=== PATIENT | male | born 1965 | race Caucasian/White ===

== ENCOUNTER 2018-07-25 15:53 | Emergency (ER) | payer BC, OTHER ==
[2018-07-25 16:46] LABS: Absolute Monocytes 1.1 K/uL (0.1-1.3); Absolute Neutrophil 4.9 K/uL (1.8-8.0); Basophils % 0.8 % (0-1.3); Eosinophils % 3.2 % (0-4.4); Hematocrit 50.7 % (39.6-49.0); Lymphocytes % 24.2 % (15.3-44.8); MPV 9.6 fL (7.6-11.3); Monocytes % 13.1 % (3.3-12.3); RBC Red Blood Cell Count 5.82 M/uL (4.33-5.43)
--- NOTE | 2018-07-25 16:47 | RAD REPORT ---
EXAM DESCRIPTION: CT - Head Brain Wo Cont - 07/25/2018 4:32 pm CLINICAL HISTORY: SYNCOPE Headache, drowsiness, syncope, head injury COMPARISON: HEAD BRAIN W O CONTRAST dated 12/19/2014 TECHNIQUE: All CT scans are performed using dose optimization technique as appropriate and may inclu de automated exposure control or mA/KV adjustment according to patient size. FINDINGS: No intracranial hemorrhage, hydrocephalus or extra-axial fluid collection.No areas of brai n edema or evidence of midline shift. The paranasal sinuses and mastoids are clear. The calvarium is intact. IMPRESSION: No acute intracranial abnormality.
[2018-07-25 16:51] LABS: Protime INR 0.9
[2018-07-25 17:06] LABS: ALT/SGPT 39 U/L (12-78); AST/SGOT 15 U/L (15-37); Albumin 3.9 g/dL (3.4-5.0); Alkaline Phosphatase 63 U/L (45-117); BUN Blood Urea Nitrogen 12 mg/dL (7-18); Bicarbonate 28 mmol/L (21-32); Bilirubin Direct < 0.1 mg/dL (0-0.2); Bilirubin Total 0.2 mg/dL (0.2-1.0); Glucose Level 107 mg/dL (74-106); Lipase 127 U/L (73-393); NT PRO-BNP 10 pg/mL (<125); Potassium 3.7 mmol/L (3.5-5.1); Protein, Total 7.4 g/dL (6.4-8.2); Sodium Level 140 mmol/L (136-145); Troponin (Emerg Dept Use Only) < 0.02 ng/mL (0.0-0.045)
--- NOTE | 2018-07-25 17:09 | ECHO ---
HEIGHT: 5 ft 11 in WEIGHT: 279 lb oz DATE OF STUDY: 07/25/[address]: Panda Bolton MD 2-DIMENSIONAL: YES M.MODE: YES DOPPLER: YES COLOR FLOW: YES TDS: NO PORTABLE: YES DEFINITY: NO BUBBLE STUDY: NO DIAGNOSIS: SYNCOPE CARDIAC HISTORY: CATHERIZATION: NO SURGERY: NO PROSTHETIC VALVE: NO PACEMAKER: NO MEASUREMENTS (cm) DIASTOLIC (NORMALS) SYSTOLIC (NORMALS) IVSd 1.1 (0.6-1.2) LA Diam 3.2 (1.9-4.0) LVEF 82% LVIDd 5.2 (3.5-5.7) LVIDs 2.5 (2.0-3.5) %FS 51% LVPWd 1.1 (0.6-1.2) Ao Diam 2.9 (2.0-3.7) 2 DIMENSIONAL ASSESSMENT: RIGHT ATRIUM: NORMAL LEFT ATRIUM: NORMAL RIGHT VENTRICLE: NORMAL LEFT VENTRICLE: NORMAL TRICUSPID VALVE: NORMAL MITRAL VALVE: NORMAL PULMONIC VALVE: NORMAL AORTIC VALVE: NORMAL PERICARDIAL EFFUSION: NONE AORTIC ROOT: NORMAL LEFT VENTRICULAR WALL MOTION: NORMAL DOPPLER/COLOR FLOW: NORMAL COMMENTS: 2D ECHOCARDIOGRAM WITH DOPPLER. TECHNOLOGIST: Berna MAHONEY
[2018-07-25 17:13] LABS: Urine Blood NEGATIVE (NEG); Urine Glucose NEGATIVE (NEG); Urine Protein 1+ (NEG); Urine pH 7.5 (5.0-7.0)
--- NOTE | 2018-07-25 17:23 | RAD REPORT ---
EXAM DESCRIPTION: RAD - Chest Single View - 07/25/2018 4:38 pm CLINICAL HISTORY: COUGH Chest pain. COMPARISON: No comparisons FINDINGS: Portable technique limits examination quality. The lungs are underinflated but grossly clear. The heart is normal in size. No displaced fractures. IMPRESSION: No acute intrathoracic process suspected.
[2018-07-25] MEDS ORDERED: NA CHLORIDE 0.9% 1,000 ML ONE (17:49)
--- NOTE | 2018-07-25 17:57 | EDPHYS ---
Physician Documentation [facility] Name: Vicente Domínguez III Age: 53 yrs Sex: Male : 1965 Arrival Date: 07/25/2018 Time: 16:03 Bed 20 Private MD: ED Physician Jeffery Brock HPI: 07/25 17:37 This 53 yrs old Male presents to ER via EMS with complaints of Syncope. gs 17:37 Onset: The symptoms/episode began/occurred acutely, just prior to arrival. Duration: gs This was a single episode, that lasted 1 minute(s). Context: the episode(s) was witnessed, by co-worker(s). Associated injury: The patient did not suffer any apparent associated injury. Associated signs and symptoms: Pertinent negatives: agitation, chest pain, combativeness, headache. Current symptoms: Currently, the patient is not experiencing any symptoms, the patient feels back to baseline. The patient has experienced a previous episode. Historical: - Allergies: 16:13 PENICILLINS; jl7 - Home Meds: 16:13 Lipitor Oral [Active]; jl7 - PMHx: 16:13 Hyperlipidemia; jl7 - Immunization history:: Adult Immunizations up to date. - Social history:: Smoking status: Patient/guardian denies using tobacco. - Ebola Screening: : No symptoms or risks identified at this time. ROS: 17:37 All other systems are negative. gs 17:37 Neuro: Negative for seizure activity. gs Exam: 17:37 Head/Face: Normocephalic, atraumatic. Eyes: Pupils equal round and reactive to light, gs extra-ocular motions intact. Lids and lashes normal. Conjunctiva and sclera are non-icteric and not injected. Cornea within normal limits. Periorbital areas with no swelling, redness, or edema. ENT: Nares patent. No nasal discharge, no septal abnormalities noted. Tympanic membranes are normal and external auditory canals are clear. Oropharynx with no redness, swelling, or masses, exudates, or evidence of obstruction, uvula midline. Mucous membranes moist. Neck: Trachea midline, no thyromegaly or masses palpated, and no cervical lymphadenopathy. Supple, full range of motion without nuchal rigidity, or vertebral point tenderness. No Meningismus. Chest/axilla: Normal chest wall appearance and motion. Nontender with no deformity. No lesions are appreciated. Cardiovascular: Regular rate and rhythm with a normal S1 and S2. No gallops, murmurs, or rubs. Normal PMI, no JVD. No pulse deficits. Respiratory: Lungs have equal breath sounds bilaterally, clear to auscultation and percussion. No rales, rhonchi or wheezes noted. No increased work of breathing, no retractions or nasal flaring. Abdomen/GI: Soft, non-tender, with normal bowel sounds. No distension or tympany. No guarding or rebound. No evidence of tenderness throughout. Back: No spinal tenderness. No costovertebral tenderness. Full range of motion. Skin: Warm, dry with normal turgor. Normal color with no rashes, no lesions, and no evidence of cellulitis. MS/ Extremity: Pulses equal, no cyanosis. Neurovascular intact. Full, normal range of motion. Neuro: Awake and alert, GCS 15, oriented to person, place, time, and situation. Cranial nerves II-XII grossly intact. Motor strength 5/5 in all extremities. Sensory grossly intact. Cerebellar exam normal. Normal gait. 17:37 ECG was reviewed by the Attending Physician. Vital Signs: 16:13 BP 141 / 67; Pulse 71; Resp 16 S; Pulse Ox 96% on R/A; Weight 129.27 kg (R); Height 6 jl7 ft. 0 in. (182.88 cm) (R); Pain 0/10; 17:41 BP 133 / 72; Pulse 72; Resp 16 S; Pulse Ox 100% on R/A; jl7 17:56 BP 142 / 74; Pulse 72; Resp 16 S; Pulse Ox 97% on R/A; jl7 19:08 BP 129 / 74; Pulse 70; Resp 16 S; Pulse Ox 100% on R/A; jl7 16:13 Body Mass Index 38.65 (129.27 kg, 182.88 cm) jl7 MDM: 16:20 Patient medically screened. gs 17:37 Differential Diagnosis: cardiac arrhythmia, cerebrovascular accident, emotional gs response, idiopathic syncope, seizure, vasovagal episode. Data reviewed: vital signs, nurses notes, lab test result(s), EKG, radiologic studies. Counseling: I had a detailed discussion with the patient and/or guardian regarding: the historical points, exam findings, and any diagnostic results supporting the discharge/admit diagnosis, lab results, radiology results, the need for outpatient follow up, a claim investigator, a neurologist. Response to treatment: the patient's symptoms have resolved after treatment, the patient's condition has returned to base line, and as a result, I will discharge patient. 17:57 Counseling: I had a detailed discussion with the patient and/or guardian regarding: the gs presence of at least one elevated blood pressure reading (>120/80) during this emergency department visit. Special discussion: I have referred the patient to see his PCP for further evaluation of high blood pressure. 18:55 ED course: pt dc pt had event horizontal nystagmus, loc, head twitch last 30 sec post gs ictal, discussed with daniella dietz.. 07/25 16:16 Order name: Basic Metabolic Panel; Complete Time: 17:15 michael 07/25 16:16 Order name: CBC with Diff; Complete Time: 17:15 michael 07/25 16:16 Order name: LFT's; Complete Time: 17:15 michael 07/25 16:16 Order name: Magnesium; Complete Time: 17:15 michael 07/25 16:16 Order name: NT PRO-BNP; Complete Time: 17:15 michael 07/25 16:16 Order name: PT-INR; Complete Time: 17:15 michael 07/25 16:16 Order name: Troponin (emerg Dept Use Only); Complete Time: 17:15 michael 07/25 16:16 Order name: XRAY Chest (1 view); Complete Time: 17:33 michael 07/25 16:16 Order name: CT Head Brain wo Cont; Complete Time: 17:15 michael 07/25 16:16 Order name: Echo w/ Doppler michael 07/25 16:16 Order name: Urine Culture [facility] 07/25 16:16 Order name: Lipase; Complete Time: 17:15 michael 07/25 16:16 Order name: D-Dimer; Complete Time: 17:15 michael 07/25 16:40 Order name: Urine Dipstick--Ancillary (enter results); Complete Time: 17:15 bd 07/25 16:16 Order name: EKG; Complete Time: 16:17 michael 07/25 16:16 Order name: Cardiac monitoring; Complete Time: 17:40 michael 07/25 16:16 Order name: EKG - Nurse/Tech; Complete Time: 17:40 [facility] 07/25 16:16 Order name: IV Saline Lock; Complete Time: 17:40 [facility] 07/25 16:16 Order name: Labs collected and sent; Complete Time: 17:40 [facility] 07/25 16:16 Order name: O2 Per Protocol; Complete Time: 17:40 [facility] 07/25 16:16 Order name: O2 Sat Monitoring; Complete Time: 17:40 [facility] 07/25 16:16 Order name: Urine Dipstick-Ancillary (obtain specimen); Complete Time: 17:40 [facility] EC:37 Rate is 70 beats/min. Rhythm is regular. PA interval is normal. QRS interval is normal. gs QT interval is normal. T waves are Normal. No ST changes noted. Clinical impression: Normal ECG. Interpreted by me. Administered Medications: 17:40 Drug: NS 0.9% 1000 ml Route: IV; Rate: 1 bolus; Site: right antecubital; jl7 19:01 Follow up: IV Status: Completed infusion jl7 18:30 Drug: Keppra 20 mg/kg Route: IV; Rate: calculated rate; Site: right antecubital; jl7 18:45 Follow up: Response: No adverse reaction; IV Status: Completed infusion jl7 Point of Care Testing: Blood Glucose: 16:15 Blood Glucose: 110 mg/dL; jl7 Ranges: Critical Glucose Levels:Adult <50 mg/dl or >400 mg/dl <40 mg/dl or >180 mg/dl Disposition: 07/25/18 18:59 Discharged to Home. Impression: Epilepsy and recurrent seizures, Syncope and collapse. - Condition is Stable. - Discharge Instructions: Seizure, Adult. - Prescriptions for Keppra 500 mg Oral Tablet - take 1 tablet by ORAL route every 12 hours; 30 tablet. - Medication Reconciliation Form, Thank You Letter, Antibiotic Education, Prescription Opioid Use form. - Follow up: Sukhdev Valadez MD; When: 2 - 3 days; Reason: Re-evaluation by your physician. Signatures: Dispatcher [employer] Panda Tidwell MD MD cha Leal, Jahala, RN RN jl7 Jeffery Brock MD MD gs Corrections: (The following items were deleted from the chart) 18:16 17:57 07/25/2018 17:57 Discharged to Home. Impression: Syncope and collapse. Condition gs is Stable. Forms are Medication Reconciliation Form, Thank You Letter, Antibiotic Education, Prescription Opioid Use. Follow up: Private Physician; When: 2 - 3 days; Reason: Re-evaluation by your physician. Follow up: Jim Cruz; When: 2 - 3 days; Reason: Re-evaluation by your physician. Follow up: Sukhdev Valadez; When: 2 - 3 days; Reason: Re-evaluation by your physician. Problem is new. Symptoms are resolved. 19:11 18:59 07/25/2018 18:59 Discharged to Home. Impression: Epilepsy and recurrent seizures; jl7 Syncope and collapse. Condition is Stable. Forms are Medication Reconciliation Form, Thank You Letter, Antibiotic Education, Prescription Opioid Use. Follow up: Sukhdev Valadez; When: 2 - 3 days; Reason: Re-evaluation by your physician. gs
--- NOTE | 2018-07-25 17:57 | ER ---
Nurse's Notes [facility] Name: Vicente Domínguez III Age: 53 yrs Sex: Male : 1965 Arrival Date: 07/25/2018 Time: 16:03 Bed 20 Private MD: Diagnosis: Epilepsy and recurrent seizures;Syncope and collapse Presentation: 07/25 16:09 Presenting complaint: EMS states: He was at a meeting, sitting down and had a syncopal jl7 episode, did not hit his head. when he woke up he was extremely diaphoretic and pale. Pt denies pain, SOB, N/V/D. reports the doctor took him off of seizure medication 3 months ago that he was put on due to a possible seizure he had a couple years ago. Transition of care: patient was not received from another setting of care. Onset of symptoms was July 25, 2018. Risk Assessment: Do you want to hurt yourself or someone else? Patient reports no desire to harm self or others. Initial Sepsis Screen: Does the patient meet any 2 criteria? No. Patient's initial sepsis screen is negative. Does the patient have a suspected source of infection? No. Patient's initial sepsis screen is negative. Care prior to arrival: IV initiated. 20 GA, in the right antecubital area. 16:09 Method Of Arrival: EMS: [facility] jl7 16:09 Acuity: JESUS MANUEL 3 jl7 Triage Assessment: 16:13 General: Appears in no apparent distress. uncomfortable, Behavior is calm, cooperative, jl7 appropriate for age. Pain: Denies pain. EENT: No signs and/or symptoms were reported regarding the EENT system. Neuro: Level of Consciousness is awake, alert, obeys commands, Oriented to person, place, time, situation, Speech is normal, Facial symmetry appears normal, Pupils are PERRLA, Reports denies dizziness, weakness, [place], blurred vision. Cardiovascular: Heart tones S1 S2 present Patient's skin is warm and dry. Respiratory: Airway is patent Respiratory effort is even, unlabored, Respiratory pattern is regular, symmetrical, Breath sounds are clear bilaterally. GI: No signs and/or symptoms were reported involving the gastrointestinal system. : No signs and/or symptoms were reported regarding the genitourinary system. Derm: Skin is pink, warm \T\ dry. Musculoskeletal: No signs and/or symptoms reported regarding the musculoskeletal system. Historical: - Allergies: 16:13 PENICILLINS; jl7 - Home Meds: 16:13 Lipitor Oral [Active]; jl7 - PMHx: 16:13 Hyperlipidemia; jl7 - Immunization history:: Adult Immunizations up to date. - Social history:: Smoking status: Patient/guardian denies using tobacco. - Ebola Screening: : No symptoms or risks identified at this time. Screenin:16 Abuse screen: Denies threats or abuse. Denies injuries from another. Nutritional jl7 screening: No deficits noted. Tuberculosis screening: No symptoms or risk factors identified. Fall Risk IV access (20 points). Total Riddle Fall Scale indicates No Risk (0-24 pts). Assessment: 16:16 General: See triage assessment. jl7 17:41 Reassessment: Patient appears in no apparent distress at this time. No changes from jl7 previously documented assessment. Patient and/or family updated on plan of care and expected duration. Pain level reassessed. Patient is alert, oriented x 3, equal unlabored respirations, skin warm/dry/pink. 18:05 Reassessment: Dr. Brock at bedside discussing plan of care. jl7 Vital Signs: 16:13 BP 141 / 67; Pulse 71; Resp 16 S; Pulse Ox 96% on R/A; Weight 129.27 kg (R); Height 6 jl7 ft. 0 in. (182.88 cm) (R); Pain 0/10; 17:41 BP 133 / 72; Pulse 72; Resp 16 S; Pulse Ox 100% on R/A; jl7 17:56 BP 142 / 74; Pulse 72; Resp 16 S; Pulse Ox 97% on R/A; jl7 19:08 BP 129 / 74; Pulse 70; Resp 16 S; Pulse Ox 100% on R/A; jl7 16:13 Body Mass Index 38.65 (129.27 kg, 182.88 cm) jl7 ED Course: 16:03 Patient arrived in ED. em1 16:09 Ysabel Colon, IVIS is Primary Nurse. jl7 16:12 Triage completed. jl7 16:13 Arm band placed on right wrist. jl7 16:14 Jeffery Brock MD is Attending Physician. gs 16:16 Patient has correct armband on for positive identification. Placed in gown. Bed in low jl7 position. Call light in reach. Side rails up X2. traffic monitor specialist on. Pulse ox on. NIBP on. Warm blanket given. 16:16 Maintain EMS IV. Dressing intact. Good blood return noted. Site clean \T\ dry. Gauge \T\ jl 7 site: 20 right AC. 16:23 EKG done, by sample prep technician. reviewed by Panda Bolton MD. [facility] 16:30 CT completed. Patient tolerated procedure well. Patient moved to CT via wheelchair. ca Patient moved back from CT. 16:32 CT Head Brain wo Cont In Process Unspecified. EDMS 16:39 XRAY Chest (1 view) In Process Unspecified. EDMS 17:56 Jim Cruz MD is Referral Physician. gs 17:56 Sukhdev Valadez MD is Referral Physician. 18:57 Sukhdev Valadez MD is Referral Physician. 19:08 No provider procedures requiring assistance completed. IV discontinued, intact, jl7 bleeding controlled, No redness/swelling at site. Pressure dressing applied. Administered Medications: 17:40 Drug: NS 0.9% 1000 ml Route: IV; Rate: 1 bolus; Site: right antecubital; jl7 19:01 Follow up: IV Status: Completed infusion jl7 18:30 Drug: Keppra 20 mg/kg Route: IV; Rate: calculated rate; Site: right antecubital; jl7 18:45 Follow up: Response: No adverse reaction; IV Status: Completed infusion jl7 Point of Care Testing: Blood Glucose: 16:15 Blood Glucose: 110 mg/dL; jl7 Ranges: Outcome: 17:57 Discharge ordered by . 18:59 Discharge ordered by . 19:08 Discharged to home ambulatory. jl7 19:08 Condition: stable 19:08 Discharge instructions given to patient, family, Instructed on discharge instructions, follow up and referral plans. medication usage, Demonstrated understanding of instructions, follow-up care, medications, Prescriptions given X 1. 19:11 Patient left the ED. jl7 Signatures: Dispatcher [employer] EDMS Elton Hines em1 Mao Haro Jahala, RN RN jl7 Jeffery Brock MD MD Farhana Olson 3
[2018-07-25] MEDS ORDERED: LEVETIRACETAM IV ONE (18:30)
[2018-07-25] MEDS ORDERED: NA CHLORIDE 0.9% IV ONE (18:30)
[2018-07-26 08:02] VITALS: BP 129/74; O2SAT 100
== END 2018-07-25 19:11 | disposition home or self-care (01) ==
LOC: ER 15:53
DX: G40.802 Other epilepsy, not intractable, without status epilepticus (principal); E78.5 Hyperlipidemia, unspecified; Z88.0 Allergy status to penicillin
CPT/HCPCS: 36415; 70450; 71045; 80048; 80076; 81003; 83690; 83735; 83880; 84484; 85025; 85379; 85610; 87086; 87088; 93005; 93306; 96361; 96374; 99285; J1953; J7030

== ENCOUNTER 2021-07-24 01:09 | Observation (INO) | payer BC ==
[2021-07-24] MEDS ORDERED: ASPIRIN 81 MG CHEWABLE TABLET ONE (01:58)
[2021-07-24 02:13] LABS: Absolute Lymphocytes (CBC) 1.8 K/uL (0.7-4.9); Hematocrit 49.7 % (39.6-49.0); Lymphocytes % 24.9 % (15.3-44.8); MPV 9.4 fL (7.6-11.3); RBC Red Blood Cell Count 5.75 M/uL (4.33-5.43)
[2021-07-24 02:35] LABS: Potassium 3.8 mmol/L (3.5-5.1)
--- NOTE | 2021-07-24 04:17 | ER ---
Nurse's Notes [facility] Name: Vicente Domínguez III Age: 56 yrs Sex: Male : 1965 Arrival Date: 07/24/2021 Time: 01:11 Bed 25 Private MD: Diagnosis: Chest pain, unspecified Presentation: 07/24 01:14 Chief complaint: Patient states: "It started in my back, then it came around to the tw5 front and now it starting to go down my left arm.". Chief complaint: Spouse and/or significant other states: "He was moving heavy items and he hurt is back, but his chest and arm he has been bothering him. He has been grumpy and complaining about for a couple of days.". Coronavirus screen: Vaccine status: Patient reports being unvaccinated. Ebola Screen: Patient negative for fever greater than or equal to 101.5 degrees Fahrenheit, and additional compatible Ebola Virus Disease symptoms Patient denies exposure to infectious person. Patient denies travel to an Ebola-affected area in the 21 days before illness onset. Initial Sepsis Screen: Does the patient meet any 2 criteria? No. Patient's initial sepsis screen is negative. Does the patient have a suspected source of infection? No. Patient's initial sepsis screen is negative. Risk Assessment: Do you want to hurt yourself or someone else? Patient reports no desire to harm self or others. Onset of symptoms was July 22, 2021. 01:14 Method Of Arrival: Ambulatory tw5 01:14 Acuity: JESUS MANUEL 2 tw5 Triage Assessment: 01:18 General: Appears in no apparent distress. Behavior is cooperative, appropriate for age, tw5 anxious. Pain: Complains of pain in anterior aspect of left upper chest Pain radiates to left axilla Pain currently is 3 out of 10 on a pain scale. Cardiovascular: Patient's skin is warm and dry. Historical: - Allergies: :18 PENICILLINS; tw5 - Home Meds: 01:18 Keppra 250 mg Oral tab 2 tabs 2 times per day [Active]; atorvastatin 40 mg oral tab 1 tw5 tab once daily [Active]; - PMHx: 01:18 Hyperlipidemia; Seizure; tw5 - PSHx: 01:18 Cholecystectomy; knee surgery- left knee; tw5 - Immunization history:: Flu vaccine is up to date. - Social history:: Smoking status: Patient denies any tobacco usage or history of. - Family history:: not pertinent. Screenin:15 Abuse screen: Denies threats or abuse. Nutritional screening: No deficits noted. ag7 Tuberculosis screening: No symptoms or risk factors identified. Fall Risk No fall in past 12 months (0 pts). No secondary diagnosis (0 pts). IV access (20 points). Ambulatory Aid- None/Bed Rest/Nurse Assist (0 pts). Gait- Normal/Bed Rest/Wheelchair (0 pts) Mental Status- Oriented to own ability (0 pts). Total Riddle Fall Scale indicates No Risk (0-24 pts). Assessment: 01:28 Cardiovascular: Rhythm is sinus rhythm. tw5 02:09 General: Appears in no apparent distress. comfortable, obese, well groomed, Behavior is ag7 calm, cooperative, appropriate for age, Reports chest pain. Pain: Complains of pain in left trapezius and left scapular area Pain currently is 4 out of 10 on a pain scale. Quality of pain is described as aching, dull, Pain began suddenly, Is intermittent. Neuro: Level of Consciousness is awake, alert, obeys commands, Oriented to person, place, situation, Appropriate for age Incident Response Analyst are equal bilaterally Moves all extremities. Cardiovascular: Heart tones S1 S2 present muffled Capillary refill < 3 seconds is brisk in bilateral fingers toes Clubbing of nail beds is absent JVD is absent Patient's skin is warm and dry. Pulses are 2+ in right radial artery, right dorsalis pedis artery, left radial artery, left dorsalis pedis artery, left carotid pulse and right carotid pulse Edema trace bilateral lower extremity. Respiratory: Airway is patent Trachea midline Respiratory effort is even, unlabored, Respiratory pattern is regular, symmetrical, Breath sounds are clear bilaterally. 03:09 Reassessment: No changes from previously documented assessment. Patient and/or family ag7 updated on plan of care and expected duration. Pain level reassessed. Patient is alert, oriented x 3, equal unlabored respirations, skin warm/dry/pink. 04:00 Reassessment: No changes from previously documented assessment. Patient and/or family ag7 updated on plan of care and expected duration. Pain level reassessed. Patient is alert, oriented x 3, equal unlabored respirations, skin warm/dry/pink. 04:59 General: pt refused medications, spoke to family about plan of care. as6 05:00 Reassessment: No changes from previously documented assessment. Patient and/or family ag7 updated on plan of care and expected duration. Pain level reassessed. Patient is alert, oriented x 3, equal unlabored respirations, skin warm/dry/pink. Patient denies pain at this time. 05:57 Reassessment: No changes from previously documented assessment. Patient and/or family ag7 updated on plan of care and expected duration. Pain level reassessed. Patient is alert, oriented x 3, equal unlabored respirations, skin warm/dry/pink. patient is off the floor for CTA. 06:15 Reassessment: Patient and/or family updated on plan of care and expected duration. Pain ag7 level reassessed. Patient is alert, oriented x 3, equal unlabored respirations, skin warm/dry/pink. Patient return from CT. Vital Signs: 01:14 BP 122 / 73; Pulse 70; Resp 18; Temp 97.7(O); Pulse Ox 96% on R/A; Weight 120.2 kg; tw5 Height 5 ft. 11 in. (180.34 cm); Pain 3/10; 02:00 BP 131 / 81; Pulse 70; Resp 18 S; Pulse Ox 97% on R/A; Pain 4/10; ag7 02:30 BP 107 / 66; Pulse 62; Resp 16 S; Pulse Ox 93% on R/A; Pain 4/10; ag7 03:00 BP 140 / 77; Pulse 61; Resp 16 S; Pulse Ox 95% on R/A; Pain 4/10; ag7 03:15 BP 127 / 74; Pulse 65; Resp 16; Pulse Ox 91% on R/A; Pain 4/10; ag7 04:15 BP 119 / 72; Pulse 62; Resp 16 S; Pulse Ox 94% on R/A; Pain 0/10; ag7 05:15 BP 120 / 64 LA Supine (auto/reg); Pulse 63 MON; Resp 16 S; Pulse Ox 95% on R/A; Pain ag7 0/10; 05:45 BP 130 / 67; Pulse 60; Resp 16 S; Pulse Ox 93% on R/A; Pain 0/10; ag7 01:14 Body Mass Index 36.96 (120.20 kg, 180.34 cm) tw5 ED Course: 01:11 Patient arrived in ED. kc5 01:18 Triage completed. tw5 01:18 Arm band placed on right wrist. tw5 01:28 EKG completed in triage. Results shown to MD. tw5 01:34 Panda Bolton MD is Attending Physician. michael 01:47 Rachele Puckett, IVIS is Primary Nurse. ag7 01:48 Inserted saline lock: 20 gauge in right antecubital area, using aseptic technique. ag7 Blood collected. 02:16 Patient has correct armband on for positive identification. Bed in low position. Call ag7 light in reach. Side rails up X 1. air sampling and monitoring on. Pulse ox on. 02:16 Patient maintains SpO2 saturation greater than 95% on room air. ag7 04:16 Peyton Cedeño MD is Hospitalizing Provider. michael 06:00 No provider procedures requiring assistance completed. ag7 06:21 CT Aorta for Dissection In Process Unspecified. EDMS Administered Medications: 02:00 Drug: Aspirin Chewable Tablet 324 mg Route: PO; ag7 03:00 Follow up: Response: No adverse reaction ag7 05:00 Not Given (Patient Refused): morphine 2 mg IVP once; RASS on ADMIN: Combtv4, Very ag7 Agttd3, Agttd2, Rstlss1, AlertClm0, Drwsy-1, Lt Sdtn-2, Mod Sdtn-3, Dp Sdtn-4, UnArsble-5 05:00 Not Given (Patient Refused): Zofran (Ondansetron) 4 mg IVP once; over 2 minutes ag7 05:01 Not Given (Patient Refused): Lovenox (enoxaparin) 100 mg Sub-Q once ag7 05:01 Not Given (Patient Refused): Pepcid (famotidine) 20 mg IVP once; dilute with 10 mL 0.9% ag7 NaCl; give over 2 minutes Outcome: 04:16 Decision to Hospitalize by Provider. michael 12:18 Patient left the ED. iw Signatures: Dispatcher [employer] EDMS Panda Bolton MD MD cha Williams, Irene, RN RN iw Nelly Shine tw5 Donn Garcia RN RN as6 Elyssa Carreno kc5 Italo, Rachele, RN RN ag7 Corrections: (The following items were deleted from the chart) 03:35 01:48 Inserted saline lock: 20 gauge in right antecubital area, using aseptic ag7 technique. ag7
--- NOTE | 2021-07-24 04:18 | EDPHYS ---
Physician Documentation [facility] Name: Vicente Domínguez III Age: 56 yrs Sex: Male : 1965 Arrival Date: 07/24/2021 Time: 01:11 Bed 25 Private MD: ED Physician Panda Bolton HPI: 07/24 04:11 This 56 yrs old Male presents to ER via Ambulatory with complaints of Chest michael Pain. 04:11 The patient or guardian reports chest pain that is located primarily in the anterior michael chest wall, left. Onset: 2 day(s) ago. The pain does not radiate. Associated signs and symptoms: The patient has no apparent associated signs or symptoms. The chest pain is described as a pressure. Modifying factors: The symptoms are alleviated by nothing. the symptoms are aggravated by movement. Severity of pain: At its worst the pain was mild in the emergency department the pain is unchanged. The patient has not experienced similar symptoms in the past. Historical: - Allergies: 01:18 PENICILLINS; tw5 - Home Meds: 01:18 Keppra 250 mg Oral tab 2 tabs 2 times per day [Active]; atorvastatin 40 mg oral tab 1 tw5 tab once daily [Active]; - PMHx: 01:18 Hyperlipidemia; Seizure; tw5 - PSHx: 01:18 Cholecystectomy; knee surgery- left knee; tw5 - Immunization history:: Flu vaccine is up to date. - Social history:: Smoking status: Patient denies any tobacco usage or history of. - Family history:: not pertinent. ROS: 04:11 Constitutional: Negative for fever, chills, and weight loss, Eyes: Negative for injury, michael pain, redness, and discharge, ENT: Negative for injury, pain, and discharge, Neck: Negative for injury, pain, and swelling, Respiratory: Negative for shortness of breath, cough, wheezing, and pleuritic chest pain, Abdomen/GI: Negative for abdominal pain, nausea, vomiting, diarrhea, and constipation, Back: Negative for injury and pain, : Negative for injury, bleeding, discharge, and swelling, MS/Extremity: Negative for injury and deformity, Skin: Negative for injury, rash, and discoloration, Neuro: Negative for headache, weakness, numbness, tingling, and seizure, Psych: Negative for depression, anxiety, suicide ideation, homicidal ideation, and hallucinations, Allergy/Immunology: Negative for hives, rash, and allergies, Endocrine: Negative for neck swelling, polydipsia, polyuria, polyphagia, and marked weight changes, Hematologic/Lymphatic: Negative for swollen nodes, abnormal bleeding, and unusual bruising. 04:11 Cardiovascular: Positive for chest pain, with movement, of the left supraclavicular area, left clavicle, anterior aspect of left upper chest, right lateral anterior chest and right lateral posterior chest. Exam: 04:11 Constitutional: This is a well developed, well nourished patient who is awake, alert, michael and in no acute distress. Head/Face: Normocephalic, atraumatic. Eyes: Pupils equal round and reactive to light, extra-ocular motions intact. Lids and lashes normal. Conjunctiva and sclera are non-icteric and not injected. Cornea within normal limits. Periorbital areas with no swelling, redness, or edema. ENT: Nares patent. No nasal discharge, no septal abnormalities noted. Tympanic membranes are normal and external auditory canals are clear. Oropharynx with no redness, swelling, or masses, exudates, or evidence of obstruction, uvula midline. Mucous membranes moist. Neck: Trachea midline, no thyromegaly or masses palpated, and no cervical lymphadenopathy. Supple, full range of motion without nuchal rigidity, or vertebral point tenderness. No Meningismus. Cardiovascular: Regular rate and rhythm with a normal S1 and S2. No gallops, murmurs, or rubs. Normal PMI, no JVD. No pulse deficits. Respiratory: Lungs have equal breath sounds bilaterally, clear to auscultation and percussion. No rales, rhonchi or wheezes noted. No increased work of breathing, no retractions or nasal flaring. Abdomen/GI: Soft, non-tender, with normal bowel sounds. No distension or tympany. No guarding or rebound. No evidence of tenderness throughout. Back: No spinal tenderness. No costovertebral tenderness. Full range of motion. Male : Normal genitalia with no discharge or lesions. Skin: Warm, dry with normal turgor. Normal color with no rashes, no lesions, and no evidence of cellulitis. MS/ Extremity: Pulses equal, no cyanosis. Neurovascular intact. Full, normal range of motion. Neuro: Awake and alert, GCS 15, oriented to person, place, time, and situation. Cranial nerves II-XII grossly intact. Motor strength 5/5 in all extremities. Sensory grossly intact. Cerebellar exam normal. Normal gait. Psych: Awake, alert, with orientation to person, place and time. Behavior, mood, and affect are within normal limits. 04:11 Chest/axilla: Inspection: Vital Signs: 01:14 BP 122 / 73; Pulse 70; Resp 18; Temp 97.7(O); Pulse Ox 96% on R/A; Weight 120.2 kg; tw5 Height 5 ft. 11 in. (180.34 cm); Pain 3/10; 02:00 BP 131 / 81; Pulse 70; Resp 18 S; Pulse Ox 97% on R/A; Pain 4/10; ag7 02:30 BP 107 / 66; Pulse 62; Resp 16 S; Pulse Ox 93% on R/A; Pain 4/10; ag7 03:00 BP 140 / 77; Pulse 61; Resp 16 S; Pulse Ox 95% on R/A; Pain 4/10; ag7 03:15 BP 127 / 74; Pulse 65; Resp 16; Pulse Ox 91% on R/A; Pain 4/10; ag7 04:15 BP 119 / 72; Pulse 62; Resp 16 S; Pulse Ox 94% on R/A; Pain 0/10; ag7 05:15 BP 120 / 64 LA Supine (auto/reg); Pulse 63 MON; Resp 16 S; Pulse Ox 95% on R/A; Pain ag7 0/10; 05:45 BP 130 / 67; Pulse 60; Resp 16 S; Pulse Ox 93% on R/A; Pain 0/10; ag7 01:14 Body Mass Index 36.96 (120.20 kg, 180.34 cm) tw5 MDM: 01:39 Patient medically screened. michael 04:14 Differential diagnosis: abnormal EKG, acute pericarditis, anxiety, chest wall pain, michael hiatal hernia, stable angina, thoracic aortic disection, unstable angina. HEART Score: ECG: Normal (0), Age: > 45 and < 65 years (1). The patient was given aspirin in the Emergency Department. The patient's deep vein thrombosis risk score was calculated as follows: Total Score: 0. This patient was found to be at low risk for a deep vein thrombosis by using the Well's assessment criteria. The patient's pulmonary embolism risk score was calculated as follows: Total Score: 0-2 points. This patient was found to be at low risk for a pulmonary embolism by using the Well's assessment criteria. TOMMY Risk Score: TOTAL SCORE = 0. Data reviewed: vital signs, nurses notes, lab test result(s), EKG, radiologic studies, CT scan, plain films. Data interpreted: compliance monitor: rate is 65 beats/min, rhythm is regular, Pulse oximetry: on room air is 91 %. Test interpretation: by ED physician or midlevel provider: ECG, plain radiologic studies. 07/24 01:43 Order name: COVID-19 SARS RT PCR (Document "Date of Onset" if Symptomatic) la1 07/24 03:47 Order name: CBC with Automated Diff EDMS 07/24 03:47 Order name: Basic Metabolic Panel EDMS 07/24 03:47 Order name: Troponin High Sensitivity EDMS 07/24 03:47 Order name: SARS-COV-2 RT PCR EDMS 07/24 04:09 Order name: Lipase EDMS 07/24 04:26 Order name: Basic Metabolic Panel EDMS 07/24 04:26 Order name: Basic Metabolic Panel EDMS 07/24 04:26 Order name: CBC with Automated Diff EDMS 07/24 04:26 Order name: CBC with Automated Diff EDMS 07/24 01:28 Order name: EKG; Complete Time: 03:49 tw5 07/24 04:10 Order name: CT Aorta for Dissection michael 07/24 04:26 Order name: CONS Physician Consult EDMS 07/24 04:26 Order name: Regular EDMS 07/24 04:26 Order name: Echo with Doppler EDMS 07/24 04:26 Order name: EKG Electrocardiogram EDMS 07/24 04:26 Order name: EKG Electrocardiogram EDMS 07/24 04:32 Order name: Lipid Profile michael 07/24 05:10 Order name: LDL, Direct EDMS 07/24 10:01 Order name: Troponin High Sensitivity EDMS 07/24 01:28 Order name: EKG - Nurse/Tech; Complete Time: 01:28 tw5 07/24 01:42 Order name: Cardiac monitoring; Complete Time: 01:48 la1 07/24 01:42 Order name: IV Saline Lock; Complete Time: 01:48 la1 07/24 01:42 Order name: Labs collected and sent; Complete Time: 01:48 in07/24 01:42 Order name: O2 Per Protocol [facility] 07/24 01:42 Order name: O2 Sat Monitoring [facility] 07/24 04:26 Order name: EKG Electrocardiogram EDMS 07/24 04:26 Order name: EKG Electrocardiogram EDMS Administered Medications: 02:00 Drug: Aspirin Chewable Tablet 324 mg Route: PO; ag7 03:00 Follow up: Response: No adverse reaction ag7 05:00 Not Given (Patient Refused): morphine 2 mg IVP once; RASS on ADMIN: Combtv4, Very ag7 Agttd3, Agttd2, Rstlss1, AlertClm0, Drwsy-1, Lt Sdtn-2, Mod Sdtn-3, Dp Sdtn-4, UnArsble-5 05:00 Not Given (Patient Refused): Zofran (Ondansetron) 4 mg IVP once; over 2 minutes ag7 05:01 Not Given (Patient Refused): Lovenox (enoxaparin) 100 mg Sub-Q once ag7 05:01 Not Given (Patient Refused): Pepcid (famotidine) 20 mg IVP once; dilute with 10 mL 0.9% ag7 NaCl; give over 2 minutes Disposition Summary: 07/24/21 04:16 Hospitalization Ordered Hospitalization Status: Observation michael Provider: Peyton Cedeño cha Condition: Stable michael Problem: new michael Symptoms: have improved michael Bed/Room Type: Standard michael Location: [facility] ER HOLD(07/24/21 05:16) Room Assignment: ERHOLD-(07/24/21 05:16) Diagnosis - Chest pain, unspecified michael Forms: - Medication Reconciliation Form michael - SBAR form michael Signatures: Dispatcher [employer] EDMS Panda Bolton MD MD cha Attema, Lee, PSYCHOMETRICIAN-C PSYCHOMETRICIAN-Cla1 Leeanne Castillo, RN RN Nelly Roe tw5 Rachele Puckett RN RN ag7 Corrections: (The following items were deleted from the chart) 04:09 03:49 BASIC METABOLIC PANEL+C.LAB.BRZ ordered. EDMS EDMS 04:09 03:49 CBC+H.LAB.BRZ ordered. EDMS EDMS 04:09 03:49 Troponin High Sensitivity+C.LAB.BRZ ordered. EDMS EDMS 04:09 03:49 LIPASE+C.LAB.BRZ ordered. EDMS EDMS 04:14 03:49 Chest Single View+RAD.RAD.BRZ ordered. EDMS EDMS 05:16 04:16 Telemetry/MedSurg (observation) [facility] 05:16 04:[address] [facility]
[2021-07-24] MEDS ORDERED: ONDANSETRON 4 MG/2 ML VIAL IV PRN ×2 (04:21→08:18)
[2021-07-24] MEDS ORDERED: ACETAMINOPHEN 500 MG TAB PO PRN ×2 (04:21→08:17)
[2021-07-24] MEDS ORDERED: MORPHINE 4 MG/ML SYR IV PRN ×2 (04:23→08:16)
[2021-07-24] MEDS ORDERED: ONDANSETRON 4 MG/2 ML VIAL ONE (04:39)
[2021-07-24] MEDS ORDERED: MORPHINE 2 MG/ML SYR ONE (04:39)
[2021-07-24 05:07] LABS: HDL Cholesterol 32 mg/dL (40-60)
[2021-07-24 05:19] LABS: LDL, Direct 86 mg/dL (100-129)
[2021-07-24] MEDS ORDERED: methocarbamoL 500 MG TAB PO ONE (08:22)
[2021-07-24] MEDS ORDERED: DICLOFENAC SOD D.R. 75 MG TAB PO ONE (08:30)
[2021-07-24] MEDS ORDERED: methocarbamoL 500 MG TAB ONE (08:44)
[2021-07-24] MEDS ORDERED: FAMOTIDINE 20 MG/2 ML VIAL IV ONE (08:45)
[2021-07-24] MEDS ORDERED: ASPIRIN EC 81 MG TAB PO ONE (08:45)
[2021-07-24] MEDS ORDERED: ENOXAPARIN 100 MG/ML SYR SQ SCH ×2 (09:00)
[2021-07-24] MEDS ORDERED: ASPIRIN EC 81 MG TAB PO SCH ×2 (09:00)
[2021-07-24] MEDS ORDERED: FAMOTIDINE 20 MG/2 ML VIAL IV SCH ×2 (09:00)
--- NOTE | 2021-07-24 09:19 | RAD REPORT ---
EXAM DESCRIPTION: CT - Angio Aorta For Dissection - 07/24/2021 6:19 am CLINICAL HISTORY: . Chest and abd pain COMPARISON: None TECHNIQUE: Computed tomography angiography of the chest, abdomen pelvis were obtained. 100 cc Isovue 370 was administered intravenously. Coronal and sagittal reconstruction were performed. MIP 3D reconstruction was performed All CT scans are performed using dose optimization technique as appropriate and may include automated exposure control or mA/KV adjustment according to patient size. FINDINGS: An aortic dissection is not seen. An aortic aneurysm is not displayed. High-grade stenosis celiac artery. SMA and KEITH are patent A lung consolidation is not present. A pericardial effusion is not seen. A pleural effusion is not no ebony. The liver,spleen, pancreas, adrenals and kidneys demonstrate no significant abnormality. The appendix is normal. There no evidence diverticulitis. Small inguinal hernias contain fat IMPRESSION: Negative for an aortic dissection. High-grade stenosis iliac artery
[2021-07-24 11:12] VITALS: BMI 36.9
[2021-07-24 12:12] VITALS: BP 132/78; TEMP 97.2
[2021-07-24 12:50] VITALS: O2SAT 93
--- NOTE | 2021-07-25 03:53 | SS ---
Date of Discharge: 07/24/2021 Chief Complaint: Arm pain, chest pain. History Of Present Illness: This is a 56-year-old male patient who was working over the weekend on , moving some heavy furniture, which was approximately 200 pounds to 250 pounds. He did not h ave any fall, but as of Tuesday of this week, he started to have pain in left supraclavicular region, left shoulder, left arm, and then subsequently pain moved to left upper anterior chest wall area. Pa in gets worse with certain movements; for example, when he is driving car using his left hand on the steering wheel with certain movement, pain would get worse. Pain does not get worse with any breathi ng or movement. No shortness of breath. No palpitation. No fever, chills. No hemoptysis. After yaron keller was evaluated in the ER, I was contacted requesting admission to the hospital. I saw him in the em ergency room this morning and his was present with him at bedside. Allergies: TO PENICILLIN. Medications: Atorvastatin 80 mg daily, vitamin D3 2000 unit daily, levetiracetam 500 mg 2 times a da y, Sildenafil 100 mg once a week as needed, injection 1 mL intramuscularly every 2 weeks, and anastrozole 1 mg once a week. Review of Systems: Musculoskeletal: As mentioned above. Cardiovascular: As mentioned above, all other systems reviewed and negative. Past Medical History: Significant for a seizure disorder, impaired fasting glucose, hyperlipidemia, erectile dysfunction, testicular hypofunction. Past Surgical History: Cholecystectomy and arthroscopic knee surgery. Family History: Parents with hypertension and hyperlipidemia. Social History: Negative for smoking. Use of alcohol, rarely uses beer. Physical Examination: Vital Signs: Weight , height , temperature , respiratory rate __, blood pressure , pulse . General: Awake, alert, oriented, not in distress. HEENT: Head atraumatic, normocephalic. Conjunctivae nonerythematous. Sclerae white. Mouth, no thr ush or edema noted. Ears/Nose, no mass, lesion, discharge noted. Neck: Supple. No JVD, lymph nodes, bruit, thyromegaly noted. Lungs: Bilateral good equal air entry. Clear to auscultation. No rhonchi. No rales. Heart: Normal heart sounds, no murmur or gallop. Abdomen: Soft, bowel sounds normal. No guarding, rigidity, tenderness, mass, hepatosplenomegaly, dis tention, or bruit noted. Extremities: No leg edema. No calf tenderness. Skin: No rash, ulcer, cellulitis. Lymphatics: No lymph node enlargement in neck, supraclavicular, infraclavicular region. Neuro: No focal neurological deficit. Chest: The patient has some reproducible chest pain in the left upper anterior chest wall in the inf raclavicular region. External Genitalia: Deferred. Rectal: Deferred. Laboratory Data: White count 7.1, hemoglobin 16.7, platelets . Sodium 140, potassium 3.8, chloride 108, bicarb 28, BUN 14, creatinine 0.93, glucose 128. First troponin 10, second troponin 8 , triglyceride 450, cholesterol 153, LDL 86, HDL 32. COVID-19 test negative. Chest x-ray no acute c ardiopulmonary changes. CAT scan of the aorta per angiogram shows significant celiac artery stenosis . EKG sinus rhythm. No acute ST-T changes. Hospital Course: After I evaluated the patient this morning, I suspected that his pain is musculoske letal in nature and atypical chest pain. He was advised to take some anti-inflammatory and muscle re laxants and 1 dose of diclofenac 75 mg and methocarbamol 500 mg by mouth was ordered this morning. I did communicate details with towel distributor and since towel distributor did not have a chance to see him in the hospital prior to discharge, I will have the patient follow with measures for stress test. I did not have CAT scan report available when I evaluated the patient, so I will communicate w ith him next week when he comes to see me for followup. Discharge Medications And Instructions: 1.Continue all prior home medications. 2.Diclofenac 50 mg 2 times a day. 3.Methocarbamol 500 mg 2 times a day and prescription was sent to his pharmacy. 4.Follow up at my office next week. Final Diagnoses: 1.Chest pain, atypical. 2.Celiac artery stenosis. 3.Hyperlipidemia. 4.Impaired fasting glucose. 5.Erectile dysfunction. 6.Testicular hypofunction. 7.Seizure disorder . DELROY/MODL Voice ID: [id number] Report ID: [id number]
== END 2021-07-24 12:20 | disposition home or self-care (01) ==
LOC: ER 01:09 → ERHOLD 07:20
PROVIDERS: ADMIT Internal Medicine; ATTEND Internal Medicine
DX: R07.89 Other chest pain (principal); I77.4 Celiac artery compression syndrome; E78.5 Hyperlipidemia, unspecified; N52.9 Male erectile dysfunction, unspecified; E29.1 Testicular hypofunction; G40.909 Epilepsy, unspecified, not intractable, without status epilepticus; Z20.822 Contact with and (suspected) exposure to COVID-19; Z88.0 Allergy status to penicillin
CPT/HCPCS: 85025; 80048; 36415; 83721; 80061; 84484 ×2; 83690; 71275; 74175; U0003; Q9967; 99285; G0378; J2270; J2405